=== PATIENT | male | born 1970 | race Caucasian/White ===

== ENCOUNTER 2017-01-31 16:25 | Emergency (ER) | payer MEDICAID ==
[~2017-01-31] VITALS: Ht 170.2 cm; Wt 93.0 kg
[2017-01-31 16:40] VITALS: BP 147/91
== END 2017-02-01 | disposition left against medical advice (07) ==
LOC: ER 16:25
DX: Z53.21 Procedure and treatment not carried out due to patient leaving prior to being seen by health care provider (principal); F17.210 Nicotine dependence, cigarettes, uncomplicated

== ENCOUNTER 2017-02-01 08:29 | Emergency (ER) | payer MEDICAID ==
[~2017-02-01] VITALS: Ht 172.7 cm; Wt 93.0 kg
[2017-02-01] MEDS ORDERED: ONDANSETRON 4MG ODT PO ONE (10:30)
[2017-02-01] MEDS ORDERED: MORPHINE SULFATE 10 MG/ML CPJ IM ONE (10:30)
[2017-02-01] MEDS ORDERED: KETOROLAC 60MG/2ML VIAL IM ONE (12:45)
[2017-02-01 14:35] VITALS: BP 120/82
== END 2017-02-01 14:57 | disposition home or self-care (01) ==
LOC: ER 11:35
DX: M25.512 Pain in left shoulder (principal); M79.602 Pain in left arm; M79.642 Pain in left hand; E11.9 Type 2 diabetes mellitus without complications; Z98.890 Other specified postprocedural states; F17.210 Nicotine dependence, cigarettes, uncomplicated; W01.0XXA Fall on same level from slipping, tripping and stumbling without subsequent striking against object, initial encounter; Y93.89 Activity, other specified; Y92.480 Sidewalk as the place of occurrence of the external cause
CPT/HCPCS: 73000; 73030; 73060; 73080; 73090; 73110; 73130; 96372; 99284; J1885; J2270; Q0162; Z7610; A4565